=== PATIENT | female | born 1960 | race African-American/Black ===

== ENCOUNTER 2017-02-28 11:01 | Emergency (ER) | payer MEDICAID ==
[~2017-02-28] VITALS: Ht 162.6 cm; Wt 78.9 kg
[2017-02-28 11:59] LABS: Urine Bilirubin Negative (Negative); Urine Blood Negative /uL (Negative); Urine Color Yellow (Yellow); Urine Glucose Normal (Normal); Urine Ketone Negative (Negative); Urine Mucus FEW (None Seen); Urine Nitrite Negative (Negative); Urine RBC <1 /hpf (0 - 4); Urine Squamous Epithelial Cell FEW /hpf (<5)
[2017-02-28 12:18] LABS: Basophils # (auto) 0.1 uL; Basophils % (auto) 0.9 % (0.0-2.0); Eosinophils # (auto) 0.3 uL; Eosinophils % (auto) 3.4 % (0.0-7.0); Lymphocytes # (auto) 3.2 uL; Lymphocytes % (auto) 41.2 % (10.0-50.0); Mean Corpuscular Hemoglobin 30.9 pg (28.0-32.0); Mean Corpuscular Hgb Conc. 33.4 g/dL (32.0-36.0); Mean Corpuscular Volume 92.4 fL (80.0-100.0); Mean Platelet Volume 9.4 fL (6.9-10.8); Monocytes # (auto) 0.5 uL; Monocytes % (auto) 6.4 % (0.0-12.0); Neutrophils # (auto) 3.7 uL; Neutrophils % (auto) 48.1 % (37.0-80.0); Nucleated Red Blood Cells % 0.3 %; Platelet Count (auto) 175 10^3/uL (140-450); Red Cell Distribution Width 15.4 % (11.8-14.3); White Blood Cell 7.8 10^3/uL (4.4-10.8)
[2017-02-28] MEDS ORDERED: HYDROcodone-ACET 5/325MG TAB PO ONE (13:00)
[2017-02-28 13:59] LABS: Albumin 3.8 g/dL (3.4-5.0); Bilirubin, Total 0.4 mg/dL (0.2-1.0); Calcium 8.6 mg/dL (8.5-10.1); Potassium 3.5 mmol/L (3.5-5.1); Total Protein 8.1 g/dL (6.4-8.2)
[2017-02-28 14:10] LABS: BUN/Creatinine Ratio 8.8
[2017-02-28 14:24] VITALS: BP 104/63
== END 2017-02-28 14:25 | disposition home or self-care (01) ==
LOC: ER 11:01
DX: R10.32 Left lower quadrant pain (principal)
CPT/HCPCS: 36415; 80053; 81001; 82150; 83690; 85025; 93005

== ENCOUNTER 2023-08-02 20:03 | Emergency (ER) | payer MEDICAID ==
[~2023-08-02] VITALS: Ht 162.6 cm; Wt 79.3 kg
[2023-08-02 20:04] VITALS: BP 128/70; PULSE 73; RESP 16; O2SAT 95
== END 2023-08-03 01:16 | disposition home or self-care (01) ==
LOC: ER 20:03
DX: G89.29 Other chronic pain (principal); M54.9 Dorsalgia, unspecified; I10 Essential (primary) hypertension; Z90.49 Acquired absence of other specified parts of digestive tract

== ENCOUNTER 2025-04-16 07:35 | Day surgery (SDC) | payer MEDICAID ==
[2025-04-16] VITALS (9 sets, daily range): BP systolic 101–129; BP diastolic 58–76; PULSE 60–72; RESP 12–19; TEMP 97.2; O2SAT 92–100
[~2025-04-16] VITALS: Ht 163.8 cm; Wt 73.9 kg
[~2025-04-16 07:35] MED LIST: AMIT25TA20 PO; AMLO1TAB22 PO; ASPI-543 PO; ATOR10TA52 PO; GABA-339 PO; HYDR-4798 PO; HYDR25TA4 PO; IBUP1TAB5 PO; METH-1182 PO; POTA-228 PO
[2025-04-16] MEDS: IODIXANOL 320MG/ML 100ML BTL IV ONE ×2 (07:49→09:04)
[2025-04-16] MEDS: HEPARIN SODIUM (PORCINE) 5000 UNITS/ML 1ML VIAL ONE (08:25)
[2025-04-16] MEDS: fentaNYL CITRATE 100 MCG/2 ML VL ONE (08:25)
[2025-04-16] MEDS: VERAPAMIL 2.5MG/ML INJ 2ML VIAL IV ONE (08:25)
[2025-04-16] MEDS: ANGIOMAX 250 MG VIAL IV ONE (08:25)
[2025-04-16] MEDS: MIDAZOLAM HCL 2MG/2ML 2ml VIAL (1mg/ml) ONE (08:26)
[2025-04-16] MEDS: SODIUM CHL 0.9% 0 ML ONE (08:26)
[2025-04-16] MEDS: LIDOCAINE 2%HCL (LOCAL ANESTH.) INJ 20ML MDV ONE (08:26)
--- NOTE | 2025-04-16 10:00 | DVHOP2 ---
Operative Report Procedures performed: Right and left heart catheterization Bilateral coronary angiogram Moderate sedation Ultrasound-guided access (femoral artery/vein) Diagnosis: Mild post capillary pulmonary hypertension Nonobstructive coronary artery disease LVEF of 65% LVEDP of 18 mm Hg Cardiac suggestions for management: Optimized medical therapy Lifestyle and risk factor modification Findings: PCW: 16/16/14 mm Hg PA: 44/24/31 mm Hg RV: 46/11/15 mm Hg RA: 15/13/12 mm Hg Cardiac output: 4.13 L/min Cardiac index: 2.30 L/min/M LV: 127/1/30 mm Hg Aorta: 126/57/85 mm Hg Left main: Left main was coming off the left sinus of Valsalva. It was free of disease. LAD: LAD was coming off the left main. It provided a large diagonal. LAD throughout its course and branches was free of disease. Ramus intermedius: Ramus intermedius was a large caliber/branching vessel which came off left main. It was free of disease. LCX: LCX was coming off left main. LCX and branches was free of disease. RCA: RCA was coming off the right sinus of Valsalva. It provided RPDA/RPLA. It was the dominant vessel. Prox to mid RCA revealed [id number] diffuse disease. Distal portions of RCA and branches were free of disease. Presentation: Patient is a 62-year-old female who presented to the office with chest pain. Past medical history includes hypertension, hyperlipidemia, COPD, degenerative joint disease, status post cervical/spinal/lumbar fusion surgery, hiatal hernia surgery, active cigarette smoker and peripheral artery disease. Echocardiogram of January 2025 revealed ejection fraction of 65-70%. No wall motion abnormality. Mild biatrial enlargement. Trace mitral regurgitation. Mild TR/PI. Right ventricular systolic pressure was 45 mm Hg. Nuclear stress test of November 2023 was abnormal and the patient was sent for cardiac cath eterization. Procedure: After obtaining informed consent, the patient was brought to laboratory chemical assistant. She was prepped and draped in sterile fashion. 1 mg of Versed and 50 mcg of fentanyl were used for moderate sedation. Under ultrasound guidance and use of micro puncture, the right femoral vessels were accessed. A six [place] femoral sheath was exchanged over a wire (from micro puncture sheath) for Femoral vein access. After proving a good femoral artery access point (angiographically), micro puncture sheath was exchanged over a wire to a six [place] femoral sheath. A six [place] Crescent-Robert catheter was used to perform right heart catheterization (obtaining pressures and calculating cardiac output, thermodilution technique). A six [place] JL4 diagnostic catheter was used to perform left coronary angiography. A six [place] JR4 diagnostic catheter was used to perform right coronary angiography. A six [place] pigtail catheter was used to perform left heart catheterization (obtaining pressures and performing left ventriculography). There was no indication for any transcatheter revascularization. Total bleeding was less than 15 mL. There was no dissection/hematoma/perforation. Right femoral artery access site was managed by deploying an Angio-Seal device. Right femoral vein access site was managed by manual compression. Patient tolerated procedure with no complication. Fluoroscopy time: 6.0 minutes contrast: 70 mL of CHIQUITA Irvin MD Apr 16, 2025 10:00
== END 2025-04-16 13:10 | disposition home or self-care (01) ==
LOC: CATH 07:35
PROVIDERS: ATTEND Internal Medicine Cardiovascular Disease
DX: I25.10 Atherosclerotic heart disease of native coronary artery without angina pectoris (principal); I27.20 Pulmonary hypertension, unspecified; R07.9 Chest pain, unspecified; R94.39 Abnormal result of other cardiovascular function study; I10 Essential (primary) hypertension; I51.7 Cardiomegaly; I73.9 Peripheral vascular disease, unspecified; E78.5 Hyperlipidemia, unspecified; J44.9 Chronic obstructive pulmonary disease, unspecified; K44.9 Diaphragmatic hernia without obstruction or gangrene; F17.210 Nicotine dependence, cigarettes, uncomplicated; Z79.82 Long term (current) use of aspirin; Z79.899 Other long term (current) drug therapy; Z98.1 Arthrodesis status
CPT/HCPCS: 93460; C1760; C1769; C1894; J1644; J2250; J3010; J7030; Q9967; 99152